=== PATIENT | female | born 1935 | race Caucasian/White ===

== ENCOUNTER 2016-11-26 20:32 | Emergency (ER) | payer MEDICARE ==
[2016-11-26 23:30] LABS: HEMOGLOBIN 15.3 gm/dl (12.3-15.3); WHITE BLOOD COUNT 12.6 K/UL (4.5-11.0)
[2016-11-26 23:49] LABS: BUN/CREATININE RATIO 10 (0-10)
== END 2016-11-27 05:35 | disposition short-term general hospital (02) ==
LOC: ER1 20:32
PROVIDERS: Physician Assistant
DX: K26.9 Duodenal ulcer, unspecified as acute or chronic, without hemorrhage or perforation (principal); I71.4 Abdominal aortic aneurysm, without rupture; F17.210 Nicotine dependence, cigarettes, uncomplicated; Z88.5 Allergy status to narcotic agent; Z90.49 Acquired absence of other specified parts of digestive tract
CPT/HCPCS: 71010; 80053; 81001; 83690; 84484; 85025; 87077; 87086; 87186; 93005; 99285; C9113; J0696; J2270; J2405; J7030; J7050; Q9962